=== PATIENT | male | born 2000 | race Caucasian/White ===

== ENCOUNTER 2021-12-07 21:57 | Emergency (ER) | payer SELFPAY ==
[2021-12-07] MEDS ORDERED: predniSONE 20 MG TAB ONE (22:40)
[2021-12-07] MEDS ORDERED: Ibuprofen 800 MG TAB ONE (22:40)
== END 2021-12-07 22:48 | disposition home or self-care (01) ==
LOC: MADERS 21:57
DX: T59.91XA Toxic effect of unspecified gases, fumes and vapors, accidental (unintentional), initial encounter (principal); J68.9 Unspecified respiratory condition due to chemicals, gases, fumes and vapors; R07.81 Pleurodynia; F17.290 Nicotine dependence, other tobacco product, uncomplicated
CPT/HCPCS: 71045; 93005; J7512